=== PATIENT | female | born 1950 | race Caucasian/White ===

== ENCOUNTER → 2020-12-19 | Outpatient (CLI) | payer MEDICARE, OTHER ==
[~2020-12-19] MED LIST: BMP Blood Test; ZOFRAN4 MG PO
== END ==
LOC: MAMO 11:03
DX: Z12.31 Encounter for screening mammogram for malignant neoplasm of breast (principal)
CPT/HCPCS: 77063; 77067

== ENCOUNTER → 2021-05-01 | Outpatient (CLI) | payer MEDICARE, OTHER ==
[2021-05-01 10:33] LABS: HEMOGLOBIN 13.3 gm/dl (12.3-15.3); RED BLOOD COUNT 4.26 M/UL (4.00-5.10); WHITE BLOOD COUNT 7.4 K/UL (4.5-11.0)
[2021-05-02 11:14] LABS: HBSAG SCREEN Negative (Negative); HEP A AB, IGM Negative (Negative); HEP B CORE AB, IGM Negative (Negative); HEP C VIRUS AB 0.2 (0.0-0.9)
[2021-05-04 05:10] LABS: QUANTIFERON MITOGEN VALUE >10.00 IU/mL (.); QUANTIFERON NIL VALUE 0.02 IU/mL (.); QUANTIFERON TB1 AG VALUE 0.08 IU/mL (.); QUANTIFERON TB2 AG VALUE 0.05 IU/mL (.); QUANTIFERON-TB GOLD PLUS Negative (Negative)
== END ==
LOC: LAB 09:06
PROVIDERS: Dermatology
DX: L40.1 Generalized pustular psoriasis (principal); L40.0 Psoriasis vulgaris; R53.82 Chronic fatigue, unspecified
CPT/HCPCS: 36415; 80053; 80074; 85027

== ENCOUNTER → 2021-07-24 | Outpatient (CLI) | payer MEDICARE, OTHER | LOC: RAD 11:05 | DX: J43.9 Emphysema, unspecified (principal) | CPT/HCPCS: 71046 ==

== ENCOUNTER → 2022-04-24 | Outpatient (CLI) | payer MEDICARE, OTHER ==
[2022-04-24 10:01] LABS: RED BLOOD COUNT 4.21 M/UL (4.00-5.10); WHITE BLOOD COUNT 6.5 K/UL (4.5-11.0)
[2022-04-27 09:12] LABS: QUANTIFERON MITOGEN VALUE >10.00 IU/mL (.); QUANTIFERON NIL VALUE 0.03 IU/mL (.); QUANTIFERON TB1 AG VALUE 0.06 IU/mL (.); QUANTIFERON TB2 AG VALUE 0.08 IU/mL (.); QUANTIFERON-TB GOLD PLUS Negative (Negative)
== END ==
LOC: LAB 09:19
PROVIDERS: Dermatology
DX: L40.1 Generalized pustular psoriasis (principal); L40.0 Psoriasis vulgaris; J43.9 Emphysema, unspecified
CPT/HCPCS: 36415; 71046; 80053; 85027

== ENCOUNTER → 2022-05-24 | Outpatient (CLI) | payer MEDICARE, OTHER ==
[2022-05-24 16:32] LABS: HEMOGLOBIN 13.2 gm/dl (12.3-15.3); RED BLOOD COUNT 4.31 M/UL (4.00-5.10); WHITE BLOOD COUNT 8.6 K/UL (4.5-11.0)
== END ==
LOC: LAB 16:05
PROVIDERS: Family Medicine
DX: I10 Essential (primary) hypertension (principal); E03.9 Hypothyroidism, unspecified; R19.7 Diarrhea, unspecified
CPT/HCPCS: 36415; 80053; 84443; 85025; 87045; 87046; 87177; 87209; 89055